=== PATIENT | male | born 1955 | race Caucasian/White ===

== ENCOUNTER 2021-07-01 15:24 | Observation (INO) ==
[2021-07-01] MEDS ORDERED: ONDANSETRON 4 MG/2 ML VIAL IV PRN (16:59)
[2021-07-01] MEDS ORDERED: ONDANSETRON 4 MG ODT TABLET SL PRN (16:59)
[2021-07-01] MEDS ORDERED: ACETAMINOPHEN 325 MG TABLET PO PRN (16:59)
[2021-07-01] MEDS ORDERED: SENNOSIDES 1 TABLET PO PRN (16:59)
[2021-07-01] MEDS ORDERED: METOPROLOL TARTRATE 5 MG/5 ML VIAL IV ONE ×3 (17:49→20:40)
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
[2021-07-01] MEDS: METOPROLOL TARTRATE 25 MG TABLET PO SCH (20:44)
[2021-07-01] MEDS: 0.9 % SODIUM CHLORIDE 10 ML SYRINGE IV SCH (20:45)
[2021-07-01] MEDS ORDERED: IPRATROPIUM/ALBUTEROL SULFATE 1 PUFF INHALER INH SCH (21:00)
[2021-07-01] MEDS: APIXABAN 5 MG TABLET PO SCH (21:42)
[2021-07-01] MEDS ORDERED: ALBUTEROL SULFATE 2.5 MG/3 ML NEBULIZER NEB PRN (22:25)
[2021-07-01] MEDS ORDERED: IPRATROPIUM/ALBUTEROL 3 ML AMPUL.NEB NEB ONE (22:34)
[2021-07-01] MEDS: IPRATROPIUM/ALBUTEROL 3 ML AMPUL.NEB NEB SCH (22:42)
[2021-07-02] MEDS: 0.9 % SODIUM CHLORIDE 10 ML SYRINGE IV SCH ×2 (04:01→12:50)
[2021-07-02 06:49] LABS: Basophils # (Auto) 0.04 K/mcL (0.00-0.20); Basophils % (Auto) 0.5 % (0.0-2.0); Eosinophils # (Auto) 0.02 K/mcL (0.00-0.70); Eosinophils % (Auto) 0.3 % (0.0-7.0); Hematocrit 41.3 % (41.0-55.0); Hemoglobin 13.5 g/dL (13.5-16.5); Lymphocytes # (Auto) 0.46 K/mcL (1.50-4.80); Lymphocytes % (Auto) 6.1 % (15.0-49.0); Mean Cell Volume 93.4 fL (80.0-100.0); Mean Corpuscular HGB Conc 32.7 g/dL (31.0-36.0); Mean Platelet Volume 10.4 fL (7.4-10.4); Monocytes # (Auto) 0.73 K/mcL (0.10-0.90); Monocytes % (Auto) 9.6 % (1.0-12.0); Neutrophils % (Auto) 83.5 % (38.0-78.0); Platelet Count 284 K/mcL (140-440); RBC 4.42 M/mcL (4.50-5.90); Red Cell Distribution Width 13.2 % (11.5-14.5); WBC 7.6 K/mcL (4.5-11.0)
[2021-07-02 07:31] LABS: ALT/SGPT 62 U/L (<40); AST/SGOT 41 U/L (<40); Albumin 3.5 gm/dL (3.2-5.2); Albumin/Globulin Ratio 1.5 (1.0-2.3); Alkaline Phosphatase 112 U/L (39-117); Bilirubin,Direct 0.2 mg/dL (<0.3); Bilirubin,Total 0.5 mg/dL (0.1-1.0); Blood Urea Nitrogen 18 mg/dL (8-23); Calcium 8.9 mg/dL (8.6-10.4); Carbon Dioxide 23 mmol/L (22-30); Chloride 95 mmol/L (96-108); Globulin 2.3 gm/dL (2.2-3.7); Glomerular Filtration Rate 56; Glucose 117 mg/dL (70-105); Lactate Dehydrogenase 175 U/L (135-225); Phosphorous 3.3 mg/dL (2.5-4.5); Thyroid Stimulating Hormone 2.68 uIU/mL (0.27-5.01); Triglycerides 135 mg/dL (<150)
[2021-07-02] MEDS ORDERED: ALBUTEROL SULFATE 200 PUFF INHALER INH PRN (08:16)
[2021-07-02] MEDS: APIXABAN 5 MG TABLET PO SCH (08:30)
[2021-07-02] MEDS: METOPROLOL TARTRATE 25 MG TABLET PO SCH (08:31)
[2021-07-02] MEDS: FUROSEMIDE 20 MG/2 ML VIAL IV SCH ×2 (08:31→08:35)
[2021-07-02] MEDS ORDERED: MULTIVIT,THER IRON,CA,FA & MIN 1 TABLET PO SCH (09:00)
[2021-07-02] MEDS ORDERED: LOSARTAN 50 MG TABLET PO SCH (09:00)
[2021-07-02] MEDS: IPRATROPIUM/ALBUTEROL 3 ML AMPUL.NEB NEB SCH (10:52)
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
== END 2021-07-02 13:25 | disposition home or self-care (01) ==
LOC: MEDSUR 16:40 → INTOOBSV 16:40
PROVIDERS: ADMIT Internal Medicine; ATTEND Internal Medicine

== ENCOUNTER 2021-08-25 10:55 | Inpatient (IN) ==
--- NOTE | 2021-08-25 11:25 | Emergency Department Note ---
SOB HPI General Chief Complaint: Shortness of Breath/Dyspnea Stated Complaint: Retaining Fluid Time Seen by Provider: 08/25/21 11:09 Source: patient Mode of arrival: wheelchair Limitations: no limitations History of Present Illness HPI Narrative: Patient is a 66-year-old gentleman who arrives the emergency department by private vehicle accompanied by his complaining of shortness of breath. The patient says he has been feeling short of breath for the past 5 days. This is gradual in onset has been progressively worsening. He denies any associated fever chills or chest pain. He does note that he has been having significant increase in his peripheral edema in bilateral lower extremities as well as distention in his abdomen. He has had similar symptoms in the past due to congestive heart failure. Patient notes his shortness of breath gets worse whenever he lies flat and has been unable to sleep for the past several days because he has been unable to lie flat. He denies missing any doses of his m edication or any change in his diet. Related Data Home Medications Medication Instructions Recorded Confirmed ascorbate calcium (vitamin C) 500 500 mg PO QDAY 10/17/19 08/06/21 mg tablet multivitamin with minerals 1 tab PO QDAY tab 10/17/19 08/06/21 COQ10 100 mg PO DAILY 06/05/20 08/06/21 Cholestoff 1,800 mg PO DAILY 06/05/20 08/06/21 Fish oil 1 caplet PO DAILY 06/05/20 08/06/21 Previous Rx's Medication Instructions Recorded losartan 50 mg tablet 25 mg PO .am #30 tab 07/11/21 fluticasone fur. 200 mcg-umeclid 1 inh INHALATION QDAY #60 ea 07/22/21 62.5 mcg-vilant 25 mcg inhalat.powder furosemide 20 mg tablet 20 mg PO BID #60 tab 07/25/21 miscellaneous medical supply #1 ea 07/26/21 apixaban 5 mg (74 tabs) tablets in 5 mg PO BID #74 tab 08/14/21 a dose pack metoprolol succinate 25 mg 25 mg PO HS #30 tab 08/14/21 tablet,extended release 24 hr Allergies Allergy/AdvReac Type Severity Reaction Status Date / Time No Known Drug Allergies Allergy Verified 08/25/21 11:00 Review of Systems ROS ROS Narrative: Narrative: All systems ED: reviewed and negative except as stated. Cardiovascular: Denies chest pain Gastrointestinal: Denies abdominal pain, nausea, vomiting and diarrhea PFS Narrative Patient History Narrative: Narrative: Medical/Surgical/Family History All Active Problems (Updated 08/25/21 @ 13:18 by Thad Key DO) Congestive heart failure (Acute) Acute kidney injury (Acute) Venous insufficiency (Acute) CHF (congestive heart failure) (Acute) Pneumonia due to COVID-19 virus (Acute) Peripheral edema (Acute) Essential hypertension (Acute) Insomnia (Acute) Dyspnea (Acute) Hematuria (Acute) Acute systolic (congestive) heart failure (Acute) COVID-19 (Acute) Multiple subsegmental pulmonary emboli without acute cor pulmonale (Acute) Atrial fibrillation (Acute) Chronic anemia (Acute) Hyperlipidemia (Acute) High cholesterol (Chronic) Urine incontinence (Chronic) Indigestion (Chronic) Well adult exam (Chronic) Screening for malignant neoplasm of colon (Chronic) Screening for malignant neoplasm of prostate (Chronic) Nocturia (Chronic) Insomnia (Chronic) Elevated PSA (Chronic) Hypogonadism (Chronic) Benign prostatic hyperplasia with urinary obstruction (Chronic) Neoplasm of prostate, malignant (Chronic ~2014) Anemia, unspecified (Chronic) Sebaceous cyst (Chronic) Bone spur (Chronic) Plantar fasciitis (Chronic) Osteoarthritis (Chronic) Anxiety with depression (Chronic) Hyperlipidemia (Chronic) Hypothyroidism (Chronic) Hyperglycemia due to type 2 diabetes mellitus (Chronic) HTN (hypertension) (Chronic) Encounter for long-term (current) use of medications (Chronic) Body mass index (BMI) 35 or more (Chronic) Allergic rhinitis (Chronic) Medical History Allergic rhinitis Anemia, unspecified Anxiety with depression Atrial fibrillation Benign prostatic hyperplasia with urinary obstruction Body mass index (BMI) 35 or more Bone spur CHF (congestive heart failure) COVID-19 Elevated PSA Encounter for long-term (current) use of medications High cholesterol HTN (hypertension) Hyperglycemia due to type 2 diabetes mellitus Hyperlipidemia Hypogonadism Hypothyroidism Indigestion Insomnia Multiple subsegmental pulmonary emboli without acute cor pulmonale Neoplasm of prostate, malignant (~2014) Robotic laser surgery in [place] at [facility] with Dr. Walter Berry/[place] [facility]. Nocturia Osteoarthritis Plantar fasciitis Screening for malignant neoplasm of colon Screening for malignant neoplasm of prostate Sebaceous cyst Urine incontinence Venous insufficiency Well adult exam Surgical History History of prostatectomy (04/24/15) Dr. Walter Escalona ([place] [facility]) Family History Mother Heart disease Father Cancer Sister No problems noted. Brother No problems noted. Social History Smoking Status: Former smoker Alcohol Intake Frequency: does not drink Substance Use: does not use Exam Narrative Narrative: I reviewed the vital signs. Gen -patient is awake and alert and in no acute distress. The patient is well groomed. HEENT -head is atraumatic. There is no conjunctival pallor or scleral icterus. Mucous membranes are moist. CV -S1-S2 irregularly irregular. Peripheral pulses are palpable. There is no JVD. Resp -breathing is nonlabored. Lungs have moderate rhonchi bilaterally. There is no cyanosis. GI - Abdomen is slightly distended and nontender to palpation. There is no guarding or rebound tenderness. Derm -skin is warm and dry. There is no visible rash. MSK -present extremities are atraumatic. There is severe pitting edema bilateral lower extremities. Psych -patient has appropriate affect. The patient does not appear internally stimulated. Neuro -patient answers questions appropriately with fluent speech. Patient moves all present extremities equally. General Limitations: no limitations Course Vital Signs Vital signs: Vital Signs Temperature 97.4 F 08/25/21 10:56 Pulse Rate 105 H 08/25/21 10:56 Respiratory Rate 18 08/25/21 10:56 Blood Pressure 123/79 08/25/21 10:56 Pulse Oximetry (%) 95 08/25/21 10:56 Temperature 97.4 F 08/25/21 10:56 Pulse Rate 77 08/25/21 12:46 Respiratory Rate 17 08/25/21 12:57 Blood Pressure 129/96 08/25/21 12:46 Pulse Oximetry (%) 94 08/25/21 12:46 MDM MDM Narrative Medical decision making narrative: Patient presents with worsening shortness of breath and peripheral edema. Chest x-ray reveals pulmonary vascular congestion. His BNP is elevated and he has acute kidney injury. I discussed the test results with the patient. Given the level of edema as well as acute kidney injury I recommended he be admitted for further treatment and he was agreeable. I discussed the patient's history examination and diagnostic findings with Dr. Arnold, who agrees with the plan of care and accepts admission. Lab Data Lab results reviewed: Yes I reviewed the patient's lab results. Result diagrams: 08/25/21 11:33 Labs: Lab Results 08/25/21 08/25/21 08/25/21 Range/Units 11:33 11:33 11:33 WBC 7.1 (4.5-11.0) K/mcL RBC 5.18 (4.63-6.08) M/mcL Hgb 15.4 (13.7-17.5) g/dL Hct 47.6 (40.1-51.0) % POC Hct 50 (41-55) % MCV 91.9 (80.0-100.0) fL MCH 29.7 (26.0-34.0) pg MCHC 32.4 (31.0-36.0) g/dL RDW 15.6 H (11.5-14.5) % Plt Count 324 (140-440) K/mcL MPV 10.1 (7.4-10.4) fL Neut % (Auto) 80.4 H (38.0-78.0) % Lymph % (Auto) 10.7 L (15.5-49.0) % Rush % (Auto) 7.4 (1.0-12.0) % Eos % (Auto) 0.7 (0.0-7.0) % Baso % (Auto) 0.8 (0.0-2.0) % Lymph # (Auto) 0.76 L (1.50-4.80) K/mcL Rush # (Auto) 0.53 (0.10-0.90) K/mcL Eos # (Auto) 0.05 (0.00-0.70) K/mcL Baso # (Auto) 0.06 (0.00-0.30) K/mcL Absolute Neutrophils 5.73 (1.80-8.00) K/mcL POC Sodium 137 (133-145) mEq/L POC Potassium 4.6 (3.3-5.1) mEql/L POC Chloride 104 (96-108) mEq/L POC Total CO2 20 L (22-30) mmol/L POC BUN 36 H (6-20) mg/dL POC Creatinine 2.3 H (0.6-1.2) mg/dL POC Glucose 121 H (70-105) mg/dL POC WB Ioniz Calcium 1.12 L (1.16-1.32) mmEq/L Troponin T < 0.01 (<0.03) ng/mL NT-Pro-B Natriuret Pep 20021.0 H (<125.0) pg/mL ED POC Tests ED POC Tests: JAVON - SARS Antigen Negative Radiology Data Radiology results reviewed: Yes I reviewed the patient's radiology results. Radiology results narrative: Portable chest x-ray was performed at 11:20 AM. I interpreted the chest x-ray prior to availability of the radiology read. There is cardiomegaly and pulmonary vascular congestion consistent with decompensated heart failure. This is slightly increased in comparison to 07/15/2021. EKG Data EKG #1: EKG attestation: Yes I reviewed and interpreted this EKG. EKG results narrative: EKG performed at 11:38 AM: Atrial fibrillation, rate 84. There are Q waves present in V1 and V2. No ST segment deviation. T waves are diffusely flattened. Normal QRS and QTc duration. No old EKG immediately available for comparison. EKG was interpreted by me. Discharge Plan Patient/Caregiver Discharge Instructions Pt seen by GLASS SETTER/PA only: No Clinical Impression: Congestive heart failure, Acute kidney injury Patient Disposition: Xfer As Inpt ([facility]) Condition: Fair Follow up with: Gerard Velázquez ARNP [Primary Care Provider] - Prescriptions: No Action multivitamin with minerals tablet 1 tab PO QDAY RF: 0 ascorbate calcium (vitamin C) 500 mg tablet 500 mg PO QDAY RF: 0 Cholestoff 1,800 mg PO DAILY RF: 0 Fish oil 1 caplet PO DAILY RF: 0 COQ10 100 mg PO DAILY RF: 0 Trelegy Ellipta 200-62.5-25 mcg blister with device 1 inh inhalation QDAY Qty: 60 RF: 0 furosemide 20 mg tablet 20 mg PO BID Qty: 60 RF: 2 metoprolol succinate 25 mg tablet extended release 24 hr 25 mg PO HS Qty: 30 RF: 2 Eliquis DVT-PE Treat 30D Start 5 mg (74 tabs) tablets,dose pack 5 mg PO BID Qty: 74 RF: 0 (DME) miscellaneous medical supply Misc See Rx Instructions .Route Qty: 1 RF: 0 [id number] [Trelegy Ellipta] 200-62.5-25 mcg blister with device 1 inh inhalation PRN PRN (Reason: sob) RF: 0 losartan 50 mg tablet 25 mg PO .am Qty: 30 RF: 2
[2021-08-25 11:45] LABS: POC Blood Urea Nitrogen 36 mg/dL (6-20); POC CO2 20 mmol/L (22-30); POC Calcium, Ionized 1.12 mmEq/L (1.16-1.32); POC Chloride 104 mEq/L (96-108); POC Creatinine 2.3 mg/dL (0.6-1.2); POC Glucose, Random 121 mg/dL (70-105); POC Hematocrit 50 % (41-55); POC Potassium 4.6 mEql/L (3.3-5.1); POC Sodium 137 mEq/L (133-145)
[2021-08-25] MEDS ORDERED: FUROSEMIDE 40 MG/4 ML VIAL IV ONE ×3 (11:50→22:00)
[2021-08-25 12:08] LABS: Basophils # (Auto) 0.06 K/mcL (0.00-0.30); Basophils % (Auto) 0.8 % (0.0-2.0); Eosinophils # (Auto) 0.05 K/mcL (0.00-0.70); Eosinophils % (Auto) 0.7 % (0.0-7.0); Hematocrit 47.6 % (40.1-51.0); Hemoglobin 15.4 g/dL (13.7-17.5); Lymphocytes # (Auto) 0.76 K/mcL (1.50-4.80); Lymphocytes % (Auto) 10.7 % (15.5-49.0); Mean Cell Volume 91.9 fL (80.0-100.0); Mean Corpuscular HGB Conc 32.4 g/dL (31.0-36.0); Mean Platelet Volume 10.1 fL (7.4-10.4); Monocytes # (Auto) 0.53 K/mcL (0.10-0.90); Monocytes % (Auto) 7.4 % (1.0-12.0); Neutrophils % (Auto) 80.4 % (38.0-78.0); Platelet Count 324 K/mcL (140-440); RBC 5.18 M/mcL (4.63-6.08); Red Cell Distribution Width 15.6 % (11.5-14.5); WBC 7.1 K/mcL (4.5-11.0)
--- NOTE | 2021-08-25 14:41 | XRay Report ---
CLINICAL INFORMATION: dyspnea COMPARISON: 07/15/2021 FINDINGS: Moderate cardiomegaly has increased. Mediastinum and pulmonary vasculature are normal for technique.. Small infiltrate has developed in the left upper lobe. Minor infiltrate right upper lobe as nearly cleared. Small right lower lung infiltrate has improved.. IMPRESSION: Small developing left upper lung infiltrate. Near complete interval resolution small focal right upper lung infiltrate. Small right lower lung infiltrate has improved. Moderate cardiomegaly, but no evidence of CHF Interpreted and Authenticated by: Heladio Valenzuela 08/25/21
--- NOTE | 2021-08-25 15:03 | Internal Med History&Physical ---
HPI History of Present Illness Patient information: Note initiated : 08/25/21 at 2:54 pm Service Date, if different from initiated Date: [] Patient: Ronald Forbes a 66 y/o M admitted on for Retaining Fluid. Chief Complaint: [CHF exacerbation] History of present illness: Mr. Forbes is a 66 year old M history of systolic CHF, atrial fibrillation's, pulmonary embolism, essential hypertension's, morbid obesity, prostate cancer, recent Covid pneumonia infections, presenting with 6 weeks history of shortness of breath. Patient was being diagnosed with Covid pneumonia in the beginning of June. He was treated with monoclonal antibodies infusions. He was also being diagnosed with atrial fibrillation's as well as pulmonary embolism at that time. He was started on anticoagulation Eliquis at that time. Patient experienced waxing and waning degree of shortness of breath which got subsequently worse today which prompted him to come to our ED for further evaluations. He is also complaining of dyspnea on exertions in the past he could do his [address] before he need to stop to catch his breath. He is also complained of general body weakness. He is also complaining of orthopnea to the point he had to stay on a recliner. He denies any cough or wheezing. He denies any fever or chills. He denies any muscle aches or cramps. He denies any chest pain. He is committing of unintentional weight gain of 20 pounds over the past 6 weeks. He is committing of bilateral leg swellings over the same period of time. Vital signs at ED presentation significant for tachycardia with heart rate in the low 100s as well as tachypnea with rate of breathing in the low to mid 20s. Rest of the vital signs within normal limits. Labs significant for elevated BNP to 31,000, lack of leukocytosis with WBC 7.1. Consuelo negative, Covid PCR pending. Chest x-ray showing pulmonary edema. Constitutional Constitutional: Present weakness and weight gain; Absent chills, excessive sweating, fatigue and fever(s) EENT Eyes: Absent blurry vision, change in vision, loss of vision and other visual disturbances Ears: Absent decreased hearing and tinnitus Nose, mouth and throat: Absent abnormal hearing, dry mouth, headache(s), nasal congestion and sore throat Cardiovascular Cardiovascular: Present dyspnea on exertion, irregular heart rhythm, leg edema, orthopnea, pedal edema and rapid heart rate; Absent chest pain, chest pain at rest, edema and palpatations Respiratory Respiratory: Present dyspnea and dyspnea on exertion; Absent cough and wheezing Gastrointestinal Gastrointestinal: Absent abdominal pain, constipation, diarrhea, nausea and vomiting Musculoskeletal Musculoskeletal: Absent back pain, deformity, limited range of motion, muscle cramps, muscle weakness and numbness Integumentary Integumentary: Absent lesions, rash and wounds Neurological Neurological: Absent focal weakness, headache(s) and numbness Psychiatric Psychiatric: Absent anxiety, depression and hallucinations PFSH PFSH All Active Problems (Updated 08/25/21 @ 15:04 by Heath Arnold MD) Stage 2 acute kidney injury (Acute) Pulmonary embolism (Acute) CHF exacerbation (Acute) Congestive heart failure (Acute) Acute kidney injury (Acute) Venous insufficiency (Acute) CHF (congestive heart failure) (Acute) Pneumonia due to COVID-19 virus (Acute) Peripheral edema (Acute) Essential hypertension (Acute) Insomnia (Acute) Dyspnea (Acute) Hematuria (Acute) Acute systolic (congestive) heart failure (Acute) COVID-19 (Acute) Multiple subsegmental pulmonary emboli without acute cor pulmonale (Acute) Atrial fibrillation (Acute) Chronic anemia (Acute) Hyperlipidemia (Acute) High cholesterol (Chronic) Urine incontinence (Chronic) Indigestion (Chronic) Well adult exam (Chronic) Screening for malignant neoplasm of colon (Chronic) Screening for malignant neoplasm of prostate (Chronic) Nocturia (Chronic) Insomnia (Chronic) Elevated PSA (Chronic) Hypogonadism (Chronic) Benign prostatic hyperplasia with urinary obstruction (Chronic) Neoplasm of prostate, malignant (Chronic ~2014) Anemia, unspecified (Chronic) Sebaceous cyst (Chronic) Bone spur (Chronic) Plantar fasciitis (Chronic) Osteoarthritis (Chronic) Anxiety with depression (Chronic) Hyperlipidemia (Chronic) Hypothyroidism (Chronic) Hyperglycemia due to type 2 diabetes mellitus (Chronic) HTN (hypertension) (Chronic) Encounter for long-term (current) use of medications (Chronic) Body mass index (BMI) 35 or more (Chronic) Allergic rhinitis (Chronic) Medical History Allergic rhinitis Anemia, unspecified Anxiety with depression Atrial fibrillation Benign prostatic hyperplasia with urinary obstruction Body mass index (BMI) 35 or more Bone spur CHF (congestive heart failure) COVID-19 Elevated PSA Encounter for long-term (current) use of medications High cholesterol HTN (hypertension) Hyperglycemia due to type 2 diabetes mellitus Hyperlipidemia Hypogonadism Hypothyroidism Indigestion Insomnia Multiple subsegmental pulmonary emboli without acute cor pulmonale Neoplasm of prostate, malignant (~2014) Robotic laser surgery in [place] at [facility] with Dr. Walter Berry/[place] [facility]. Nocturia Osteoarthritis Plantar fasciitis Screening for malignant neoplasm of colon Screening for malignant neoplasm of prostate Sebaceous cyst Urine incontinence Venous insufficiency Well adult exam Surgical History History of prostatectomy (04/24/15) Dr. Walter Escalona ([place] [facility]) Family History Mother Heart disease Father Cancer Sister No problems noted. Brother No problems noted. Social History marital status: occupation: [employer], Retired in 2014 leisure activities: hunting and fishing alcohol intake frequency: does not drink substance use type: does not use MEDS/ALLERGIES Home Medications and Allergies Home Medications Medication Instructions Recorded Confirmed Type ascorbate calcium (vitamin C) 500 500 mg PO QDAY 10/17/19 08/06/21 History mg tablet multivitamin with minerals 1 tab PO QDAY tab 10/17/19 08/06/21 History COQ10 100 mg PO DAILY 06/05/20 08/06/21 History Cholestoff 1,800 mg PO DAILY 06/05/20 08/06/21 History Fish oil 1 caplet PO DAILY 06/05/20 08/06/21 History losartan 50 mg tablet 25 mg PO .am #30 tab 07/11/21 08/06/21 Rx fluticasone fur. 200 mcg-umeclid 1 inh INHALATION QDAY #60 ea 07/22/21 08/06/21 Rx 62.5 mcg-vilant 25 mcg inhalat.powder furosemide 20 mg tablet 20 mg PO BID #60 tab 07/25/21 08/06/21 Rx miscellaneous medical supply #1 ea 07/26/21 07/30/21 Rx apixaban 5 mg (74 tabs) tablets in 5 mg PO BID #74 tab 08/14/21 Rx a dose pack metoprolol succinate 25 mg 25 mg PO HS #30 tab 08/14/21 Rx tablet,extended release 24 hr Allergies Allergy/AdvReac Type Severity Reaction Status Date / Time No Known Drug Allergies Allergy Verified 08/25/21 11:00 EXAM Constitutional Vitals: Temp Pulse Resp BP Pulse Ox 36.3 C 93 H 23 H 138/110 90 08/25/21 10:56 08/25/21 14:01 08/25/21 14:16 08/25/21 14:16 08/25/21 14:01 General appearance: cooperative, morbidly obese and no acute distress Head Head exam: Present atraumatic and normocephalic Eye Eye exam: Present EOMI and PERRL ENT ENT exam: Present mucous membranes moist, normal exam and normal external ear exam Neck Neck exam: Present normal inspection; Absent lymphadenopathy, tenderness and thyromegaly Respiratory Respiratory exam: Present rhonchi; Absent accessory muscle use, respiratory distress and wheezes Cardiovascular Cardiovascular exam: Present irregular rhythm and tachycardia; Absent JVD GI/Abdominal GI/Abdominal exam: Present normal bowel sounds and soft; Absent organomegaly and tenderness Rectal Rectal exam: Present deferred Extremities Exam Extremities exam: Present full ROM, normal capillary refill, normal inspection and pedal edema; Absent tenderness Neurological Exam Neurological exam: Present alert, CN II-XII intact and oriented X3; Absent motor sensory deficit Psychiatric Psychiatric exam: Present normal affect and normal mood; Absent anxious and depressed Skin Skin exam: Present dry and intact DATA Data Completed and Pending Labs: Labs from last 24 hours 08/25/21 08/25/21 08/25/21 11:33 11:33 11:33 WBC 7.1 RBC 5.18 Hgb 15.4 Hct 47.6 POC Hct 50 MCV 91.9 MCH 29.7 MCHC 32.4 RDW 15.6 H Plt Count 324 MPV 10.1 Neut % (Auto) 80.4 H Lymph % (Auto) 10.7 L Maries % (Auto) 7.4 Eos % (Auto) 0.7 Baso % (Auto) 0.8 Lymph # (Auto) 0.76 L Maries # (Auto) 0.53 Eos # (Auto) 0.05 Baso # (Auto) 0.06 Absolute Neutrophils 5.73 POC Sodium 137 POC Potassium 4.6 POC Chloride 104 POC Total CO2 20 L POC BUN 36 H POC Creatinine 2.3 H POC Glucose 121 H POC WB Ioniz Calcium 1.12 L Troponin T < 0.01 NT-Pro-B Natriuret Pep 65446.0 H A/P Assessment and plan (1) Essential hypertension: Status: Acute (2) CHF exacerbation: Status: Acute (3) Neoplasm of prostate, malignant: Status: Chronic Comment: Robotic laser surgery in [place] at [facility] with Dr. Walter Berry/[place] [facility]. (4) Body mass index (BMI) 35 or more: Status: Chronic (5) Atrial fibrillation: Status: Acute Qualifiers: Atrial fibrillation type: unspecified Qualified Code(s): I48.91 - Unspecified atrial fibrillation (6) Pulmonary embolism: Status: Acute (7) Stage 2 acute kidney injury: Status: Acute Narrative A/P Narrative: Assessment and Plans: 1. Systolic CHF exacerbation: Admit to inpatient med surg telemetry Echocardiogram from July 01 showing reduced left ventricular function with LVEF 20 to 25%. Patient also had a repeat echocardiogram done in early July: We can request outpatient record Intake and output Daily weight and 2 L/day fluid restriction Lasix 40 mg IV twice daily Increased metoprolol ER from 25 to 50 mg p.o. a chest for better control of heart rate for atrial fibrillation Hold losartan due to acute kidney injury And Aldactone given LVEF of less than 40% Supplemental oxygen as needed to titrate to SPO2 above or equal to 92% #2 atrial fibrillation: [id number] score of 3, annual stroke risk of 3.2% Increased metoprolol ER from 25 to 50 mg p.o. a chest for better control of heart rate for atrial fibrillation Lopressor IV PRN tachycardia Eliquis 3. Pulmonary embolism: Continue Eliquis 4. Morbid obesity: Counseled patient on lifestyle modification including regular exercise and healthy diet in order to lose weight 5. Essential hypertension's: Currently elevated diastolic blood pressure Hold losartan given acute kidney injury Increased dosage of the beta-dane, IV diuretics, and add Aldactone Lopressor IV as needed for better heart rate control which will also help blood pressure control 6. Stage II acute kidney injury: Avoid nephrotoxic agents Hold losartan Saline lock CMP in the morning to trend kidney functions 7. History of prostate cancer status post prostatectomy: Outpatient follow-up with PCP for continued management of prostate cancer GI prophylaxis: Not currently indicated DVT prophylaxis: Eliquis CODE STATUS: Full code Prognosis: Guarded Dispositions: Inpatient MedSurg with telemetry Time Spent With Patient Time: Total time spent is greater than 50% in coordination of care (as documented) at patient's floor/unit and/or counseling patient: Total time spent with greater than 50% in coordination of care (as documented) at patient's floor/unit and/or counseling patient:: Greater than 35 minutes
[2021-08-25] MEDS: SENNOSIDES 1 TABLET PO SCH (15:45)
[2021-08-25] MEDS ORDERED: traZODone HCL 50 MG TABLET PO PRN (16:49)
[2021-08-25] MEDS ORDERED: ONDANSETRON 4 MG/2 ML VIAL IV PRN (16:49)
[2021-08-25] MEDS ORDERED: IPRATROPIUM/ALBUTEROL 3 ML AMPUL.NEB NEB PRN (16:49)
[2021-08-25] MEDS ORDERED: METOPROLOL TARTRATE 5 MG/5 ML VIAL IV PRN (16:49)
[2021-08-25] MEDS ORDERED: ACETAMINOPHEN 325 MG TABLET PO PRN (16:49)
--- NOTE | 2021-08-25 17:56 | EKG ---
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
[2021-08-25] MEDS ORDERED: APIXABAN 5 MG TABLET PO SCH (21:00)
[2021-08-25] MEDS ORDERED: METOPROLOL SUCCINATE 25 MG TAB.XL.24H PO SCH (21:00)
[2021-08-25] MEDS: METOPROLOL SUCCINATE 25 MG TAB.XL.24H PO SCH (21:16)
[2021-08-25] MEDS: 0.9 % SODIUM CHLORIDE 10 ML SYRINGE IV SCH (21:17)
[2021-08-25] MEDS: APIXABAN 5 MG TABLET PO SCH (21:17)
[2021-08-25] MEDS: DOCUSATE SODIUM 100 MG CAPSULE PO SCH (21:17)
[2021-08-25] MEDS: FUROSEMIDE 40 MG/4 ML VIAL IV SCH (21:58)
[2021-08-26] MEDS: 0.9 % SODIUM CHLORIDE 10 ML SYRINGE IV SCH ×3 (06:36→22:53)
[2021-08-26] MEDS: FUROSEMIDE 40 MG/4 ML VIAL IV SCH ×2 (08:23→18:00)
[2021-08-26] MEDS: ASCORBIC ACID 500 MG TABLET PO SCH (08:24)
[2021-08-26] MEDS: FISH OIL 1,000 MG CAPSULE PO SCH (08:24)
[2021-08-26] MEDS: APIXABAN 5 MG TABLET PO SCH ×2 (08:24→22:33)
[2021-08-26] MEDS: MULTIVIT,THER IRON,CA,FA & MIN 1 TABLET PO SCH (08:24)
[2021-08-26] MEDS: DOCUSATE SODIUM 100 MG CAPSULE PO SCH ×2 (08:25→22:33)
[2021-08-26] MEDS: SPIRONOLACTONE 25 MG TABLET PO SCH (08:25)
[2021-08-26] MEDS ORDERED: CHOLESTOFF PO SCH (09:00)
[2021-08-26] MEDS ORDERED: FLUTICASONE UMECLIDIN VILANTER INH SCH (09:00)
[2021-08-26] MEDS ORDERED: ASCORBIC ACID 500 MG TABLET PO SCH (09:00)
[2021-08-26] MEDS ORDERED: MULTIVIT,THER IRON,CA,FA & MIN 1 TABLET PO SCH (09:00)
[2021-08-26] MEDS ORDERED: FISH OIL 1,000 MG CAPSULE PO SCH (09:00)
[2021-08-26] MEDS ORDERED: COQ10 100 MG PO SCH (09:00)
[2021-08-26] MEDS: [UNRECOGNIZED DRUG - OTHER] INH SCH (10:15)
--- NOTE | 2021-08-26 13:47 | Internal Med Progress Note ---
SUBJECTIVE Subjective Patient information: Note initiated : 08/26/21 at 1:44 pm Service Date, if different from initiated Date: [] Patient: Ronald Forbes a 66 y/o M admitted on 08/25/21 for Retaining Fluid. Chief Complaint: [CHF exacerbation] Interval history: History of present illness: Mr. Forbes is a 66 year old M history of systolic CHF, atrial fibrillation's, pulmonary embolism, essential hypertension's, morbid obesity, prostate cancer, recent Covid pneumonia infections, presenting with 6 weeks history of shortness of breath. Patient was being diagnosed with Covid pneumonia in the beginning of June. He was treated with monoclonal antibodies infusions. He was also being diagnosed with atrial fibrillation's as well as pulmonary embolism at that time. He was started on anticoagulation Eliquis at that time. Patient experienced waxing and waning degree of shortness of breath which got subsequently worse today which prompted him to come to our ED for further evaluations. He is also complaining of dyspnea on exertions in the past he could do his [address] before he need to stop to catch his breath. He is also complained of general body weakness. He is also complaining of orthopnea to the point he had to stay on a recliner. He denies any cough or wheezing. He denies any fever or chills. He denies any muscle aches or cramps. He denies any chest pain. He is committing of unintentional weight gain of 20 pounds over the past 6 weeks. He is committing of bilateral leg swellings over the same period of time. Vital signs at ED presentation significant for tachycardia with heart rate in the low 100s as well as tachypnea with rate of breathing in the low to mid 20s. Rest of the vital signs within normal limits. Labs significant for elevated BNP to 31,000, lack of leukocytosis with WBC 7.1. Consuelo negative, Covid PCR pending. Chest x- ray showing pulmonary edema. 08/26: Afebrile overnight. Patient was on up to 2 L/min of supplemental oxygen's overnight, now he is on room air. He is committing of improving degree of shortness of breath. Denies any chest pain. Denies any wheezing. Denies any subjective fever, chills, or diaphoresis. Improving lower extremities swelling. Improving degree of appetite. Still coming of general body weakness. Constitutional Vitals: Vital Signs Temp Pulse Resp BP Pulse Ox 36.2 C 95 H 22 100/61 96 08/26/21 12:00 08/26/21 12:00 08/26/21 12:00 08/26/21 12:00 08/26/21 12:00 Period Temp Pulse Resp BP Sys/[place] Pulse Ox Last 24 Hr 35.8 C-36.4 C 78-105 10-23 91-138/61-110 88-98 Intake and Output 08/25/21 08/26/21 08/26/21 21:59 05:59 13:59 Intake Total 236 490 240 Output Total 950 Balance 236 490 -710 Weight 121.138 kg Intake & Output: Intake & Output 08/25/21 08/26/21 08/26/21 21:59 05:59 13:59 Intake Total 236 490 240 Output Total 950 Balance 236 490 -710 Weight 121.138 kg Intake: Oral 236 490 240 Output: Void Amount 950 Other: Meal Dinner Breakfast Percent of Meal Consumed 100% 100% Feeding Ability Independent Independent Urine Appearance Clear Urine Color Pale Urine Odor Normal # Voids 1 10 1 General appearance: cooperative and no acute distress Head Head exam: Present atraumatic and normocephalic Eye Eye exam: Present EOMI and PERRL ENT ENT exam: Present mucous membranes moist, normal exam and normal external ear exam Neck Neck exam: Present normal inspection; Absent lymphadenopathy, tenderness and thyromegaly Respiratory Respiratory exam: Present rhonchi; Absent accessory muscle use, respiratory distress and wheezes Cardiovascular Cardiovascular exam: Present irregular rhythm; Absent JVD GI/Abdominal GI/Abdominal exam: Present normal bowel sounds and soft; Absent organomegaly and tenderness Rectal Rectal exam: Present deferred Extremities Exam Extremities exam: Present full ROM, normal capillary refill, normal inspection and pedal edema; Absent tenderness Neurological Exam Neurological exam: Present alert, CN II-XII intact and oriented X3; Absent motor sensory deficit Psychiatric Psychiatric exam: Present normal affect and normal mood; Absent anxious and depressed Skin Skin exam: Present dry and intact OBJ DATA Labs CBC & Chem 7: 08/25/21 11:33 Labs: Abnormal Lab Results 08/25/21 08/25/21 11:33 11:33 RDW 15.6 H Neut % (Auto) 80.4 H Lymph % (Auto) 10.7 L Lymph # (Auto) 0.76 L POC Total CO2 20 L POC BUN 36 H POC Creatinine 2.3 H POC Glucose 121 H POC WB Ioniz Calcium 1.12 L NT-Pro-B Natriuret Pep 80684.0 H Meds: Medications Acetaminophen (Acetaminophen 325 Mg Tablet) 650 mg PO Q6HP PRN; Protocol PRN Reason: Per Pain Protocol/Fever > 101 Albuterol/Ipratropium (Ipratropium/Albuterol 3 Ml Ampul.Neb) 3 ml NEB Q4HRT PRN PRN Reason: Wheezing Amiodarone HCl (Amiodarone Hcl 200 Mg Tablet) 200 mg PO [facility] Apixaban (Apixaban 5 Mg Tablet) 5 mg PO BID [facility] Last Admin: 08/26/21 08:24 Dose: 5 mg Documented by: Ascorbic Acid (Ascorbic Acid 500 Mg Tablet) 500 mg PO DAILY [facility] Last Admin: 08/26/21 08:24 Dose: 500 mg Documented by: Diphenhydramine HCl (Diphenhydramine 25 Mg Capsule) 50 mg PO [facility] PRN PRN Reason: Insomnia Docusate Sodium (Docusate Sodium 100 Mg Capsule) 100 mg PO BID [facility] Last Admin: 08/26/21 08:25 Dose: Not Given Documented by: Fish Oil (Fish Oil 1,000 Mg Capsule) 1,000 mg PO DAILY [facility] Last Admin: 08/26/21 08:24 Dose: 1,000 mg Documented by: Furosemide (Furosemide 40 Mg/4 Ml Vial) 40 mg IV BIDD [facility] Last Admin: 08/26/21 08:23 Dose: 40 mg Documented by: Iron Carb/Multivit/[place]/Folic Acid (Multivit,Ther Iron,Ca,Fa & Min 1 Tablet) 1 tab PO DAILY [facility] Last Admin: 08/26/21 08:24 Dose: 1 tab Documented by: Metoprolol Succinate (Metoprolol Succinate 25 Mg Tab.Xl.24h) 50 mg PO HS [facility] Last Admin: 08/25/21 21:16 Dose: 50 mg Documented by: Metoprolol Tartrate (Metoprolol Tartrate 5 Mg/5 Ml Vial) 5 mg IV Q5M PRN PRN Reason: Tachyarrhythmias Ondansetron HCl (Ondansetron 4 Mg/2 Ml Vial) 4 mg IV Q6HP PRN PRN Reason: Nausea And Vomiting Fluticasone- Umeclidin-Vilanterol [Trelegy Ellipta] Inhaler 1 dose INH QDAY [facility] Last Admin: 08/26/21 10:15 Dose: Not Given Documented by: Potassium Chloride (Potassium Chloride 20 Meq Tablet) 20 meq PO QAC [facility] Senna (Sennosides 1 Tablet) 2 tab PO HS [facility] Last Admin: 08/25/21 15:45 Dose: 2 tab Documented by: Sodium Chloride (0.9 % Sodium Chloride 10 Ml Syringe) 10 ml IV Q8 [facility] Last Admin: 08/26/21 06:36 Dose: 10 ml Documented by: Spironolactone (Spironolactone 25 Mg Tablet) 25 mg PO DAILY [facility] Last Admin: 08/26/21 08:25 Dose: 25 mg Documented by: Trazodone HCl (Trazodone Hcl 50 Mg Tablet) 25 mg PO HSP PRN PRN Reason: Insomnia A/P Assessment and plan (1) Essential hypertension: Status: Acute (2) CHF exacerbation: Status: Acute (3) Neoplasm of prostate, malignant: Status: Chronic Comment: Robotic laser surgery in [place] at [facility] with Dr. Walter Berry/[place] Urologist. (4) Body mass index (BMI) 35 or more: Status: Chronic (5) Atrial fibrillation: Status: Acute Qualifiers: Atrial fibrillation type: unspecified Qualified Code(s): I48.91 - Unspe cified atrial fibrillation (6) Pulmonary embolism: Status: Acute (7) Stage 2 acute kidney injury: Status: Acute Narrative A/P Narrative: Assessment and Plans: 1. Systolic CHF exacerbation: Stays in inpatient med surg telemetry Echocardiogram from July 01 showing reduced left ventricular function with LVEF 20 to 25%. Patient also had a repeat echocardiogram done in early July: We can request outpatient record Intake and output Daily weight and 2 L/day fluid restriction Lasix 40 mg IV twice daily Metoprolol ER 50 mg p.o. daily Hold losartan due to acute kidney injury Aldactone given LVEF of less than 40% Supplemental oxygen as needed to titrate to SPO2 above or equal to 92% #2 atrial fibrillation: [id number] score of 3, annual stroke risk of 3.2% Increased metoprolol ER from 25 to 50 mg p.o. a chest for better control of heart rate for atrial fibrillation Lopressor IV PRN tachycardia Eliquis 3. Pulmonary embolism: Continue Eliquis 4. Morbid obesity: Counseled patient on lifestyle modification including regular exercise and healthy diet in order to lose weight 5. Essential hypertension's: Currently elevated diastolic blood pressure Hold losartan given acute kidney injury Increased dosage of the beta-dane, IV diuretics, and add Aldactone Lopressor IV as needed for better heart rate control which will also help blood pressure control 6. Stage II acute kidney injury: Avoid nephrotoxic agents Hold losartan Saline lock CMP in the morning to trend kidney functions 7. History of prostate cancer status post prostatectomy: Outpatient follow-up with PCP for continued management of prostate cancer GI prophylaxis: Not currently indicated DVT prophylaxis: Eliquis CODE STATUS: Full code Prognosis: Stable Dispositions: Inpatient MedSurg with telemetry Time Spent With Patient Time: Total time spent is greater than 50% in coordination of care (as documented) at patient's floor/unit and/or counseling patient: Total time spent with greater than 50% in coordination of care (as documented) at patient's floor/unit and/or counseling patient:: Greater than 35 minutes QUALITY VTE Deep Vein Thrombosis/Pulmonary Embolism Present on Admission: No
[2021-08-26] MEDS ORDERED: MAGNESIUM CARBONATE PO SCH (21:00)
[2021-08-26] MEDS ORDERED: diphenhydrAMINE 25 MG CAPSULE PO PRN (21:00)
[2021-08-26] MEDS: SENNOSIDES 1 TABLET PO SCH (22:33)
[2021-08-26] MEDS: METOPROLOL SUCCINATE 25 MG TAB.XL.24H PO SCH (22:34)
[2021-08-27] MEDS: 0.9 % SODIUM CHLORIDE 10 ML SYRINGE IV SCH (05:12)
[2021-08-27] MEDS ORDERED: AMIODARONE HCL 200 MG TABLET PO SCH ×2 (08:00→09:00)
[2021-08-27] MEDS ORDERED: POTASSIUM CHLORIDE 20 MEQ TABLET PO SCH (08:00)
[2021-08-27 08:07] LABS: Basophils # (Auto) 0.09 K/mcL (0.00-0.30); Basophils % (Auto) 1.3 % (0.0-2.0); Eosinophils # (Auto) 0.22 K/mcL (0.00-0.70); Eosinophils % (Auto) 3.2 % (0.0-7.0); Hematocrit 48.3 % (40.1-51.0); Hemoglobin 14.8 g/dL (13.7-17.5); Lymphocytes # (Auto) 0.87 K/mcL (1.50-4.80); Lymphocytes % (Auto) 12.5 % (15.5-49.0); Mean Corpuscular HGB Conc 30.6 g/dL (31.0-36.0); Mean Platelet Volume 10.1 fL (7.4-10.4); Monocytes % (Auto) 8.6 % (1.0-12.0); Neutrophils % (Auto) 74.4 % (38.0-78.0); Platelet Count 309 K/mcL (140-440); RBC 5.14 M/mcL (4.63-6.08); Red Cell Distribution Width 15.7 % (11.5-14.5)
[2021-08-27] MEDS: FUROSEMIDE 40 MG/4 ML VIAL IV SCH (08:23)
[2021-08-27] MEDS: DOCUSATE SODIUM 100 MG CAPSULE PO SCH (08:23)
[2021-08-27] MEDS: APIXABAN 5 MG TABLET PO SCH (08:23)
[2021-08-27] MEDS: SPIRONOLACTONE 25 MG TABLET PO SCH (08:23)
[2021-08-27] MEDS: FISH OIL 1,000 MG CAPSULE PO SCH (08:24)
[2021-08-27] MEDS: [UNRECOGNIZED DRUG - OTHER] INH SCH (08:24)
[2021-08-27] MEDS: ASCORBIC ACID 500 MG TABLET PO SCH (08:24)
[2021-08-27] MEDS: MULTIVIT,THER IRON,CA,FA & MIN 1 TABLET PO SCH (08:24)
[2021-08-27 08:39] LABS: ALT/SGPT 28 U/L (<40); AST/SGOT 19 U/L (<40); Albumin 3.4 gm/dL (3.2-5.2); Albumin/Globulin Ratio 1.5 (1.0-2.3); Alkaline Phosphatase 143 U/L (39-117); Bilirubin,Total 1.1 mg/dL (0.1-1.0); Blood Urea Nitrogen 30 mg/dL (8-23); Calcium 9.1 mg/dL (8.6-10.4); Carbon Dioxide 26 mmol/L (22-30); Chloride 102 mmol/L (96-108); Globulin 2.2 gm/dL (2.2-3.7); Glomerular Filtration Rate 32; Glucose 79 mg/dL (70-105)
--- NOTE | 2021-08-27 11:04 | Discharge Summary ---
Discharge Provider Provider Patient information: Note initiated : 08/27/21 at 11:00 am Service Date, if different from initiated Date: [] Patient: Ronald Forbes a 66 y/o M admitted on 08/25/21 for Retaining Fluid. Chief Complaint: [CHF exacerbation] History of present illness: Mr. Forbes is a 66 year old M history of systolic CHF, atrial fibrillation's, pulmonary embolism, essential hypertension's, morbid obesity, prostate cancer, recent Covid pneumonia infections, presenting with 6 weeks history of shortness of breath. Patient was being diagnosed with Covid pneumonia in the beginning of June. He was treated with monoclonal antibodies infusions. He was also being diagnosed with atrial fibrillation's as well as pulmonary embolism at that time. He was started on anticoagulation Eliquis at that time. Patient experienced waxing and waning degree of shortness of breath which got subsequently worse today which prompted him to come to our ED for further evaluations. He is also complaining of dyspnea on exertions in the past he could do his [address] before he need to stop to catch his breath. He is also complained of general body weakness. He is also complaining of orthopnea to the point he had to stay on a recliner. He denies any cough or wheezing. He denies any fever or chills. He denies any muscle aches or cramps. He denies any chest pain. He is committing of unintentional weight gain of 20 pounds over the past 6 weeks. He is committing of bilateral leg swellings over the same period of time. Vital signs at ED presentation significant for tachycardia with heart rate in the low 100s as well as tachypnea with rate of breathing in the low to mid 20s. Rest of the vital signs within normal limits. Labs significant for elevated BNP to 31,000, lack of leukocytosis with WBC 7.1. Consuelo negative, Covid PCR pending. Chest x-ray showing pulmonary edema. Date of admission: 08/25/21 15:45 Discharge date: 08/27/21 Primary care physician: FREDDY Sibley Consults: 08/25/21 Consult to Physician [CONS] Stat Comment: Consulting Provider: Heath Arnold Reason For Exam: Physician to Consult Discharge Meds Discharge Medications Home Medications multivitamin with minerals 1 tab PO QDAY tab 10/17/19 [History Confirmed 08/25/21 Last Taken 06/30/21] fluticasone fur. 200 mcg-umeclid 62.5 mcg-vilant 25 mcg inhalat.powder 1 inh INHALATION QDAY #60 ea 07/22/21 [Rx Confirmed 08/25/21 Last Taken 08/24/21 20:00] miscellaneous medical supply #1 ea 07/26/21 [Rx Confirmed 08/26/21 Last Taken Unknown] apixaban 5 mg (74 tabs) tablets in a dose pack 5 mg PO BID #74 tab 08/14/21 [Rx Confirmed 08/25/21 Last Taken 08/25/21 07:00] amiodarone 200 mg PO DAILY 08/25/21 [History Confirmed 08/25/21 Last Taken Unknown] diphenhydramine-acetaminophen [Tylenol PM Extra Strength] 2 tab PO HS PRN 08/25/21 [History Confirmed 08/25/21 Last Taken Unknown] magnesium carbonate 325 mg PO HS 08/25/21 [History Confirmed 08/25/21 Last Taken Unknown] potassium chloride 20 meq PO DAILY 08/25/21 [History Confirmed 08/25/21 Last Taken Unknown] furosemide [Lasix] 40 mg PO BID #60 tab 08/27/21 [Rx Last Taken Unknown] metoprolol succinate 50 mg PO HS #30 tab 08/27/21 [Rx Last Taken Unknown] spironolactone 25 mg PO DAILY #30 tab 08/27/21 [Rx Last Taken Unknown] COURSE Hospital Course Hospital course: Patient was admitted on August 25, 2021 for CHF exacerbations. Intake and output measurement, daily weight, fluid restrictions, as well as aggressive diuresis in terms of IV Lasix, beta-dane with metoprolol extended release, and Aldactone were all implemented. Patient was tolerating room air throughout the course of his hospitalizations. Losartan were held due to acute kidney injury. Physical therapist evaluated the patient and recommend discharged home whenever medical stability was achieved. Patient's degree of shortness of breath improved drastically throughout his course of hospitalizations and by third day hospitalizations, he has reached clinical stability and thus the decision was made to discharge him home with any indicated plus prescription sent to pharmacy, and 1 week PCP follow-up appointment made for the patient. All questions were answered prior to patient being physically discharged. Discharge diagnosis: CHF exacerbation Time Spent with Patient Time attestation: Total time spent providing and/or coordinating discharge services: Patient was admitted on August 25, 2021 for CHF exacerbations. Intake and output measurement, daily weight, fluid restrictions, as well as aggressive diuresis in terms of IV Lasix, beta-dane with metoprolol extended release, a nd Aldactone were all implemented. Patient was tolerating room air throughout the course of his hospitalizations. Losartan were held due to acute kidney injury. Physical therapist evaluated the patient and recommend discharged home whenever medical stability was achieved. Patient's degree of shortness of breath improved drastically throughout his course of hospitalizations and by third day hospitalizations, he has reached clinical stability and thus the decision was made to discharge him home with any indicated plus prescription sent to pharmacy, and 1 week PCP follow-up appointment made for the patient. All questions were answered prior to patient being physically discharged. EXAM Constitutional Vitals: Temp Pulse Resp BP Pulse Ox 36.4 C 102 H 22 132/92 94 08/27/21 08:00 08/27/21 08:00 08/27/21 08:00 08/27/21 08:00 08/27/21 08:00 General appearance: cooperative and no acute distress Head Head exam: Present atraumatic and normocephalic Eye Eye exam: Present EOMI and PERRL ENT ENT exam: Present mucous membranes moist, normal exam and normal external ear exam Neck Neck exam: Present normal inspection; Absent lymphadenopathy, tenderness and thyromegaly Respiratory Respiratory exam: Absent accessory muscle use, respiratory distress and wheezes Cardiovascular Cardiovascular exam: Present irregular rhythm; Absent JVD GI/Abdominal GI/Abdominal exam: Present normal bowel sounds and soft; Absent organomegaly and tenderness Rectal Rectal exam: Present deferred Extremities Exam Extremities exam: Present full ROM, normal capillary refill, normal inspection and pedal edema; Absent tenderness Neurological Exam Neurological exam: Present alert, CN II-XII intact and oriented X3; Absent motor sensory deficit Psychiatric Psychiatric exam: Present normal affect and normal mood; Absent anxious and depressed Skin Skin exam: Present dry and intact Discharge Data Data Completed and Pending Labs on day of discharge: Labs from last 24 hours 08/27/21 08/27/21 05:25 05:25 WBC 7.0 RBC 5.14 Hgb 14.8 Hct 48.3 MCV 94.0 MCH 28.8 MCHC 30.6 L RDW 15.7 H Plt Count 309 MPV 10.1 Neut % (Auto) 74.4 Lymph % (Auto) 12.5 L [place] % (Auto) 8.6 Eos % (Auto) 3.2 Baso % (Auto) 1.3 Lymph # (Auto) 0.87 L [place] # (Auto) 0.60 Eos # (Auto) 0.22 Baso # (Auto) 0.09 Absolute Neutrophils 5.20 Sodium 143 Potassium 4.2 Chloride 102 Carbon Dioxide 26 Anion Gap 15.0 BUN 30 H Creatinine 2.1 H GFR Calculation 32 Glucose 79 Calcium 9.1 Total Bilirubin 1.1 H AST 19 ALT 28 Alkaline Phosphatase 143 H Total Protein 5.6 L Albumin 3.4 Globulin 2.2 Albumin/Globulin Ratio 1.5 Discharge Plan Patient/Caregiver Discharge Instructions Activity: ambulate only with your walker Diet: Consistent Carbohydrate Prescriptions: New spironolactone 25 mg Tablet 25 mg PO DAILY Qty: 30 RF: 0 metoprolol succinate 25 mg Tablet Extended Release 24 Hr 50 mg PO HS Qty: 30 RF: 0 furosemide [Lasix] 40 mg tablet 40 mg PO BID Qty: 60 RF: 0 Continued multivitamin with minerals tablet 1 tab PO QDAY RF: 0 Trelegy Ellipta 200-62.5-25 mcg blister with device 1 inh inhalation QDAY Qty: 60 RF: 0 Eliquis DVT-PE Treat 30D Start 5 mg (74 tabs) tablets,dose pack 5 mg PO BID Qty: 74 RF: 0 (DME) miscellaneous medical supply Misc See Rx Instructions .Route Qty: 1 RF: 0 [id number] [Trelegy Ellipta] 200-62.5-25 mcg blister with device 1 inh inhalation PRN PRN (Reason: sob) RF: 0 amiodarone 200 mg tablet 200 mg PO DAILY RF: 0 magnesium carbonate 250 mg Capsule 325 mg PO HS RF: 0 diphenhydramine-acetaminophen [Tylenol PM Extra Strength] 25-500 mg Tablet 2 tab PO HS PRN (Reason: difficulty sleeping) RF: 0 potassium chloride 20 mEq tablet extended release 20 meq PO DAILY RF: 0 Discontinued metoprolol succinate 25 mg tablet extended release 24 hr 25 mg PO HS Qty: 30 RF: 2 losartan 50 mg tablet 25 mg PO .am Qty: 30 RF: 2 furosemide 40 mg tablet 40 mg PO DAILY RF: 0 Follow Up Plan Follow up with: Gerard Velázquez ARNP [Primary Care Provider] - Patient Disposition: Home, Self-Care Prognosis: Fair Rehab Potential: Good I certify that the patient requires SNF services: No Overall status at discharge: patient is back to baseline Discharge Orders: Discharge Order (Routine); Ordered 08/27/21 Ordered By: Heath AMATO VTE Deep Vein Thrombosis/Pulmonary Embolism Present on Admission: No
== END 2021-08-27 14:02 | disposition home or self-care (01) | DRG 292 ==
LOC: ED 10:55 → MEDSUR 15:45
PROVIDERS: ADMIT Internal Medicine; ATTEND Internal Medicine